=== PATIENT | male | born 1975 | race Two or more races ===

== ENCOUNTER 2023-11-25 14:16 | Emergency (ER) | payer OTHER ==
[~2023-11-25] VITALS: Ht 182.9 cm; Wt 118.3 kg
[2023-11-25 14:35] VITALS: BP 139/85; PULSE 75; RESP 18; TEMP 98.3; O2SAT 98
[2023-11-25] MEDS ORDERED: TADA20TA PO (14:44)
== END 2023-11-25 14:53 | disposition home or self-care (01) ==
LOC: ER 14:17
DX: N52.9 Male erectile dysfunction, unspecified (principal)
CPT/HCPCS: 99281